=== PATIENT | male | born 1965 | race African-American/Black ===

== ENCOUNTER 2018-10-24 09:28 | Emergency (ER) | payer SELFPAY ==
[2018-10-24] MEDS ORDERED: LABETALOL HCL INJ 20 MG/4 ML DISP.SYRIN IV ONE (10:01)
--- NOTE | 2018-10-24 10:03 | ER Document Report ---
ED Neuro Symptoms/Deficit - General Chief Complaint: Vertigo Stated Complaint: VERTIGO Time Seen by Provider: 10/24/18 09:43 Mode of Arrival: Medic Information source: Patient, Emergency Med Personnel Notes: This 53-year-old male patient comes emergency room by EMS this morning for severe vertigo with nausea vomiting. He was given 4 mg Zofran IV, 50 mg Benadryl IV, and 12.5 mg of Phenergan IV in route. According to the patient he woke up about 730 this morning and continued to lay in bed for a few minutes. When he tried to turn over he became extremely dizzy with severe nausea and vomiting. There was no motor deficit that he is aware of. He states the symptoms are identical to an episode he had in August 2018 which was diagnosed as a right frontal CVA on MRI. He was living in [facility], and he is here visiting from that area at this time. He reports that he did have a full recovery and was back working as a swimming coach. He does have a history of diabetes, hypertension and hyperlipidemia. The patient seems a little drowsy, probably because all the medications he received. He is able to answer all questions. He is able to follow commands. There is no motor deficits detected. On [id number] testing, he did have a little difficulty finding his nose with his right index finger, the blood pressure cuff was on the right arm. He did not have problems finding the nose with the left index finger. TRAVEL OUTSIDE OF THE [place] IN LAST 30 DAYS: No - Related Data Allergies/Adverse Reactions: No Known Allergies Allergy (Unverified 10/24/18 09:42) Past Medical History - General Information source: Patient, Emergency Med Personnel - Social History Smoking Status: Never Smoker Cigarette use (# per day): No Chew tobacco use (# tins/day): No Smoking Education Provided: No Frequency of alcohol use: None Drug Abuse: None Occupation: womens volleyball coach in [facility] Lives with: Family Family History: Reviewed & Not Pertinent Patient has suicidal ideation: No Patient has homicidal ideation: No - Past Medical History Cardiac Medical History: Reports: Hx Hypercholesterolemia, Hx Hypertension Neurological Medical History: Reports: Hx Cerebrovascular Accident - Right frontal region in August 2018 Endocrine Medical History: Reports: Hx Diabetes Mellitus Type 2 Surgical Hx: Negative Review of Systems - Review of Systems Constitutional: No symptoms reported EENT: No symptoms reported Cardiovascular: No symptoms reported Respiratory: No symptoms reported Gastrointestinal: No symptoms reported Genitourinary: No symptoms reported Musculoskeletal: No symptoms reported Skin: No symptoms reported Hematologic/Lymphatic: No symptoms reported Neurological/Psychological: See HPI Physical Exam - Vital signs Vitals: BP Pulse Ox 200/106 H 100 10/24/18 09:31 10/24/18 09:31 Interpretation: Hypertensive - General General appearance: Other - Patient does seem a little drowsy but is arousable. He did receive IV Benadryl and IV Phenergan prior to arrival In distress: None - HEENT Head: Normocephalic, Atraumatic Eyes: Normal Extraocular movements intact: Yes - There is no nystagmus at this time. Pupils: PERRL Mucous membranes: Normal Pharynx: Normal Neck: Normal. No: Carotid bruit - Respiratory Respiratory status: No respiratory distress Breath sounds: Normal - Cardiovascular Rhythm: Regular Heart sounds: Normal auscultation Murmur: No - Abdominal Inspection: Normal Bowel sounds: Normal Tenderness: Nontender - Back Back: Normal, Nontender - Extremities General upper extremity: Normal inspection, Normal strength. No: Edema General lower extremity: Normal inspection, Normal strength. No: Edema - Neurological Neuro grossly intact: Yes - Psychological Associated symptoms: Normal affect, Normal mood - Skin Skin Temperature: Warm Skin Moisture: Dry Skin Color: Normal Course - Re-evaluation Re-evalutation: 10/24/18 14:22 After the Antivert, the patient is able to sit up and turn his head from side to side without provoking the dizziness. - Vital Signs Vital signs: Temp Pulse Resp BP Pulse Ox 97.6 F 84 20 138/87 H 100 10/24/18 14:35 10/24/18 09:37 10/24/18 14:35 10/24/18 14:35 10/24/18 14:35 - Laboratory Result Diagrams: 10/24/18 09:22 10/24/18 09:22 Laboratory results interpreted by me: 10/24/18 10/24/18 09:22 09:22 Plt Count 142 L Lymphocytes % 47.2 H Absolute Lymphocytes 4.9 H Chloride 97 L BUN 22 H Creatinine 1.59 H Est GFR ( Amer) 56 L Est GFR (Non-Af Amer) 46 L Glucose 212 H Direct Bilirubin 0.5 H - Diagnostic Test Radiology reviewed: Image reviewed, Reports reviewed - MRI scan of the brain shows minimal chronic microvascular ischemic changes without acute process. - EKG Interpretation by Me EKG shows normal: Sinus rhythm, Colon, Intervals, QRS Complexes. 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 Vertigo is often caused by an irritation of the inner ear, in which case it is called labyrinthitis. It can also be a symptom of a degenerating inner ear, nerve damage, or brain injury. Your physician has evaluated you to determine whether any further testing is necessary. Vertigo is often treated with dramamine or meclizine. These medications are helpful, but stronger medication may be needed if you are vomiting. Rest in bed. You should not drive or operate machinery until completely better. It may take one to three weeks for recovery. If there are new symptoms, such as decreased hearing or vision, severe headache, weakness or faintness, or confusion, call the physician. Your MRI scan did not show any new stroke or cerebral perfusion deficits. Your symptoms did improve with Antivert, which suggests the problem today is vertigo. Your lab work did show that your little dehydrated, so you will need to drink a lot more water throughout the day in the evening today. You should take the medications as prescribed. Take fall precautions until the dizziness is completely gone away. Do not drive or operate machinery, or do anything that puts you or others at risk if you were to have further episodes of the dizziness. Follow-up with a local medical doctor if not improving. RETURN TO THE EMERGENCY ROOM IF ANY NEW OR WORSENING SYMPTOMS. Prescriptions: Meclizine HCl [Antivert 25 mg Tablet] 25 mg PO TID PRN #30 tablet PRN Reason:
[2018-10-24 10:36] LABS: ABSOLUTE EOSINOPHILS # (AUTO) 0.2 10^3/uL (0.0-0.6); ABSOLUTE LYMPHOCYTES (AUTO) 4.9 10^3/uL (0.5-4.7); ABSOLUTE MONOCYTES (AUTO) 0.6 10^3/uL (0.1-1.4); ABSOLUTE NEUT (AUTO) 4.7 10^3/uL (1.7-8.2); BASOPHILS % (AUTO) 0.3 % (0-2); EOSINOPHILS % (AUTO) 2.2 % (0-6); HEMATOCRIT 42.1 % (37.9-51.0); HEMOGLOBIN 14.6 g/dL (13.5-17.0); LYMPHOCYTES % (AUTO) 47.2 % (13-45); MEAN CORPUSCULAR HEMOGLOBIN 31.1 pg (27.0-33.4); MEAN CORPUSCULAR HGB CONC 34.7 g/dL (32.0-36.0); MEAN CORPUSCULAR VOLUME 90 fl (80-97); MONOCYTES % (AUTO) 5.3 % (3-13); PLATELET COUNT 142 10^3/uL (150-450); RED BLOOD COUNT 4.71 10^6/uL (4.35-5.55); RED CELL DISTRIBUTION WIDTH 13.6 % (11.5-14.0); TOTAL CELLS COUNTED % (AUTO) 100 %; WHITE BLOOD COUNT 10.4 10^3/uL (4.0-10.5)
[2018-10-24 10:50] LABS: ALANINE AMINOTRANSFERASE 36 U/L (21-72); ALBUMIN 4.5 g/dL (3.5-5.0); ALKALINE PHOSPHATASE 71 U/L (38-126); ANION GAP 14 (5-19); ASPARTATE AMINO TRANSFERASE 33 U/L (17-59); BILIRUBIN,DIRECT 0.5 mg/dL (0.0-0.4); BILIRUBIN,TOTAL 1.3 mg/dL (0.2-1.3); BLOOD UREA NITROGEN 22 mg/dL (7-20); CALCIUM 9.6 mg/dL (8.4-10.2); CARBON DIOXIDE 29 mmol/L (22-30); CHLORIDE 97 mmol/L (98-107); CREATINE KINASE 169 U/L (55-170); GLUCOSE 212 mg/dL (75-110); POTASSIUM 3.8 mmol/L (3.6-5.0); SODIUM 140.2 mmol/L (137-145); TOTAL PROTEIN 7.2 g/dL (6.3-8.2)
[2018-10-24 11:00] LABS: TROPONIN I < 0.012 ng/mL
[2018-10-24] MEDS ORDERED: MECLIZINE HCL 25 MG TABLET PO ONE (12:00)
--- NOTE | 2018-10-24 12:07 | RADIOLOGY REPORT (SQ) ---
EXAM DESCRIPTION: MRI HEAD WITHOUT COMPLETED DATE/TIME: 10/24/2018 11:36 am REASON FOR STUDY: Acute vertigo,elevated BP,similar to CVA 08/2018 COMPARISON: None. TECHNIQUE: Multiplanar imaging includes non-contrasted T1, T2, FLAIR, and diffusion with ADC map seq uences. Images stored on PACS. LIMITATIONS: None. FINDINGS: ANATOMY: No anomalies. Normal vascular flow voids. Pituitary fossa normal. CSF SPACES: Normal in size and contour. No hemorrhage. CEREBRUM: Sulci and gyri normal in size and contour. Minimal scattered foci within the white matter on FLAIR imaging. Foci of susceptibility artifact within both basal ganglia, likely representing phy siologic calcifications. No evidence of hemorrhage, mass, or extraaxial fluid collection. POSTERIOR FOSSA: No signal alteration. No hemorrhage. No edema, masses or mass effect. Internal timothy tory canals, cerebello-pontine angles, mastoids normal. DIFFUSION IMAGING: Negative for acute or sub-acute infarction. ORBITS: No masses. Globes normal. PARANASAL SINUSES: No fluid levels. Mucosa normal. OTHER: No other significant finding. IMPRESSION: 1. No acute intracranial findings. 2. Minimal chronic microvascular ischemic disease. EVIDENCE OF ACUTE STROKE: NO. TECHNICAL DOCUMENTATION: JOB ID: [id number] [employer]- All Rights Reserved Reading location - IP/workstation name: [email or web address]
[2018-10-24] MEDS ORDERED: NORMAL SALINE 1000 ML 1,000 ML IV ONE (13:26)
[2018-10-24 14:39] VITALS: BP 138/87
--- NOTE | 2018-10-24 23:48 | EKG REPORT ---
SEVERITY:- ABNORMAL ECG - SINUS RHYTHM LEFT ANTERIOR FASCICULAR BLOCK BORDERLINE T WAVE ABNORMALITIES : Confirmed by: Samantha Cardoso MD 24-Oct-2018 23:47:06
== END 2018-10-24 15:05 | disposition home or self-care (01) ==
LOC: ER 09:28
DX: E86.0 Dehydration (principal); E11.65 Type 2 diabetes mellitus with hyperglycemia; R42 Dizziness and giddiness; R11.2 Nausea with vomiting, unspecified; I10 Essential (primary) hypertension; E78.5 Hyperlipidemia, unspecified; Z86.73 Personal history of transient ischemic attack (TIA), and cerebral infarction without residual deficits
CPT/HCPCS: 93005; 99284; 96360; 36415; 82553; 82550; 85025; 80053; 84484; 70551; 93010; J7030